=== PATIENT | female | born 1960 | race African-American/Black ===

== ENCOUNTER 2017-02-16 15:45 | Emergency (ER) | payer OTHER ==
[~2017-02-16] VITALS: Ht 154.9 cm; Wt 77.1 kg
--- NOTE | ~2017-02-16 | EKG ---
PATIENT: BRIA BERG UNIT #: [id number] Ventricular Rate: 98 BPM Atrial Rate: 98 BPM P-R Interval: 184 ms QRS Duration: 78 ms Q-T Interval: 406 ms QTC Calculation(Bezet): 518 ms P [place]: 48 degrees Calculated R [place]: -6 degrees Calculated T [place]: 61 degrees Diagnosis Line: Sinus rhythm with frequent Premature ventricular Diagnosis Line: complexes Diagnosis Line: Possible Left atrial enlargement Diagnosis Line: Inferior infarct , age undetermined Diagnosis Line: Prolonged QT Diagnosis Line: Abnormal ECG Diagnosis Line: When compared with ECG of 12-OCT-2014 17:45, Diagnosis Line: Premature ventricular complexes are now Present Diagnosis Line: Inferior infarct is now Present Diagnosis Line: Confirmed by AUDRA FARRELL MD ([id number]) on 02/18/2017 Diagnosis Line: 2:53:57 PM INTERPRETING MD: BUD BAIRES
[~2017-02-16 15:45] MED LIST: ADVAIR 250-501 EAC1 IH; ADVAIR 250-501 EAC1 INH; ALBUTEROL MININEB NEB; ALBUTEROL17 GM INH; COMBIVENT U/D3 M1 INH; EC-NAPROSYN500 MG PO; GLUCOPHAGE500 MG PO; HYDROCHLOROTHIA25 MG PO; K-DUR10 MEQ PO; LEVAQUIN PO; LISINOPRIL-HCTZ1 T15 PO; LOPID600 MG PO; METOPROLOL TAR25 MG PO; NICOTINE TRANSD21 MG EXT; PEPCID AC20 M2 PO; PRAVASTATIN SOD20 MG PO; PRAVASTATIN SOD40 MG PO; PREDNISONE10 MG/DOSE PO; ROBITUSSIN A-C S5 ML PO; SPIRIVA18 MCG INH; SYMBICORT INH; TOPROL XL PO; VIBRAMYCIN100 M1 PO; ZESTORETIC 20-1 EACH PO; ZESTRIL40 MG PO; ZITHROMAX500 MG PO
[2017-02-16 16:33] LABS: BASOPHIL% 0.4 % (0-2.5); HEMATOCRIT 44.9 % (35.0-45.0); HEMOGLOBIN 15.5 gm/dL (12.0-16.0); LYMPHOCYTE# 1.2 X10e3 (1.0-3.5); LYMPHOCYTE% 9.2 % (17.0-45.0); MEAN CELL VOLUME 92.2 FL (83-96); MEAN CORPUSCULAR HEMOGLOBIN 31.8 PG (28-34); MEAN CORPUSCULAR HGB CONC 34.4 g/dL (30-36); MEAN PLATELET VOLUME 8.8 FL (6.5-11.5); MONOCYTE# 1.3 X10e3 (0-1.0); MONOCYTE% 10.3 % (3.0-12.0); NEUTROPHIL# 10.4 X10e3 (1.5-7.1); NEUTROPHIL% 80.1 % (40-75); PLATELET COUNT 224 X10e3 (140-420); RED BLOOD COUNT 4.87 X10e (3.90-5.30); RED CELL DISTRIBUTION WIDTH 14.2 % (11.0-15.5); WHITE BLOOD COUNT 12.9 X10e3 (4.0-10.5)
[2017-02-16 16:34] LABS: DIFF IND NO
[2017-02-16 16:54] LABS: CALCIUM SERUM 9.6 mg/dL (8.4-10.2); POTASSIUM 3.4 mmol/L (3.5-5.1)
[2017-02-16 20:31] LABS: %MB 2.6 % (0.0-4.0); MB 16.7 ng/ml
== END 2017-02-17 00:35 | disposition home or self-care (01) ==
LOC: CED 15:45
PROVIDERS: Emergency Medicine
DX: I49.3 Ventricular premature depolarization (principal); M62.82 Rhabdomyolysis; F14.10 Cocaine abuse, uncomplicated; F19.10 Other psychoactive substance abuse, uncomplicated; E11.9 Type 2 diabetes mellitus without complications; J44.9 Chronic obstructive pulmonary disease, unspecified; E78.5 Hyperlipidemia, unspecified; I10 Essential (primary) hypertension; F17.210 Nicotine dependence, cigarettes, uncomplicated; Z79.82 Long term (current) use of aspirin; Z79.84 Long term (current) use of oral hypoglycemic drugs
CPT/HCPCS: 36415; 80048; 82550; 82553; 84484; 85025; 93005; 96360; 99285